=== PATIENT | male | born 1955 | race Caucasian/White ===

== ENCOUNTER 2018-06-09 19:18 | Emergency (ER) | payer OTHER ==
[~2018-06-09] VITALS: Ht 170.2 cm; Wt 84.1 kg
[2018-06-09 21:18] VITALS: BP 135/93
== END 2018-06-09 21:23 | disposition home or self-care (01) ==
LOC: EMS 19:21
DX: L03.317 Cellulitis of buttock (principal); L03.115 Cellulitis of right lower limb; G35 Multiple sclerosis; F15.10 Other stimulant abuse, uncomplicated; F17.210 Nicotine dependence, cigarettes, uncomplicated; F12.90 Cannabis use, unspecified, uncomplicated; Z86.19 Personal history of other infectious and parasitic diseases; Z88.0 Allergy status to penicillin; Z88.1 Allergy status to other antibiotic agents